=== PATIENT | female | born 1985 | race Caucasian/White ===

== ENCOUNTER 2016-05-28 14:01 | Emergency (ER) | payer OTHER ==
[~2016-05-28] VITALS: Ht 152.4 cm; Wt 61.2 kg
[2016-05-28 14:20] VITALS: BP 129/102
--- NOTE | 2016-05-28 18:43 | NUR ---
PATIENT LEFT WITHOUT BEING SEEN BY DR. BOWERS. NO FURTHER CARE PROVIDED FOR PATIENT.
== END 2016-05-28 18:43 | disposition left against medical advice (07) ==
LOC: MED 14:01
DX: R10.30 Lower abdominal pain, unspecified (principal); Z53.21 Procedure and treatment not carried out due to patient leaving prior to being seen by health care provider

== ENCOUNTER 2019-08-10 13:59 | Emergency (ER) | payer OTHER ==
[~2019-08-10] VITALS: Ht 167.6 cm; Wt 59.0 kg
--- NOTE | 2019-08-10 14:05 | NUR ---
PT AMBULATED TO ER BED 02
[2019-08-10 14:10] VITALS: BP 132/98
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
[2019-08-10] MEDS ORDERED: KETOROLAC 30 MG/ML VIAL IM ONE (14:30)
[2019-08-10 15:08] VITALS: BP 132/98
--- NOTE | 2019-08-10 15:09 | NUR ---
Patient discharged with v/s stable. Written and verbal after care instructions given and explained. Patient alert, oriented and verbalized understanding of instructions. Ambulatory with steady gait. All questions addressed prior to discharge. ID band removed. Patient advised to follow up with PMD. Rx of ZOFRAN, NAPROSYN given. Patient educated on indication of medication including possible reaction and side effects. Opportunity to ask questions provided and answered.
== END 2019-08-10 15:09 | disposition home or self-care (01) ==
LOC: MED 13:59
DX: S09.90XA Unspecified injury of head, initial encounter (principal); Y04.2XXA Assault by strike against or bumped into by another person, initial encounter; Y93.89 Activity, other specified; Y92.89 Other specified places as the place of occurrence of the external cause; Y99.8 Other external cause status
CPT/HCPCS: 70450; 81025; 96372; 99284; J1885

== ENCOUNTER 2020-11-16 17:45 | Emergency (ER) | payer OTHER ==
[~2020-11-16] VITALS: Ht 152.4 cm; Wt 64.9 kg
--- NOTE | 2020-11-16 18:14 | NUR ---
PT TO AWAIT IN LOBBY
[2020-11-16] MEDS ORDERED: FLONAS NS (18:51)
[2020-11-16] MEDS ORDERED: NAPR-54 PO (18:51)
[2020-11-16] MEDS ORDERED: OFLO5SOL27 OT (18:51)
--- NOTE | 2020-11-16 19:48 | NUR ---
Patient discharged with v/s stable. Written and verbal after care instructions given and explained. Patient alert, oriented and verbalized understanding of instructions. Ambulatory with steady gait. All questions addressed prior to discharge. ID band removed. Patient advised to follow up with PMD. Rx of FLONASE, NAPROXEN, AND FLOXIN given. Patient educated on indication of medication including possible reaction and side effects. Opportunity to ask questions provided and answered.
== END 2020-11-16 19:48 | disposition home or self-care (01) ==
LOC: MED 17:45
DX: H92.03 Otalgia, bilateral (principal); H69.83 Other specified disorders of Eustachian tube, bilateral; Z79.899 Other long term (current) drug therapy
CPT/HCPCS: 99283